=== PATIENT | female | born 1965 | race Hispanic/Latino ===

== ENCOUNTER → 2023-03-14 | Day surgery (SDC) | payer BC ==
[~2023-03-14] MED LIST: FISH OIL 1,0001 EAC7; LACTATED RINGER'S 1,000 ML ONE; LISINOPRIL5 MG PO
[2023-03-14 08:44] VITALS: TEMP 97.8
[2023-03-14 09:10] VITALS: BP 112/73; PULSE 69; RESP 18; O2SAT 100
== END | disposition home or self-care (01) ==
LOC: OR 06:41
PROVIDERS: ATTEND Internal Medicine Gastroenterology
DX: Z12.11 Encounter for screening for malignant neoplasm of colon (principal); K63.5 Polyp of colon; K64.8 Other hemorrhoids; I10 Essential (primary) hypertension; E66.01 Morbid (severe) obesity due to excess calories; Z01.810 Encounter for preprocedural cardiovascular examination; Z79.899 Other long term (current) drug therapy
CPT/HCPCS: 45380; 88305; 93005; J7121; 45384